=== PATIENT | female | born 1945 | race Caucasian/White ===

== ENCOUNTER 2019-10-15 11:50 | Inpatient (IN) | payer MEDICARE, OTHER ==
[~2019-10-15] VITALS: Ht 165.1 cm; Wt 116.9 kg
[2019-10-15] MEDS ORDERED: ACETAMINOPHEN 325 MG TAB PO ONE (12:30)
[2019-10-15 13:06] LABS: Basophils # (auto) 0.1 10 ^3/uL (0-0.2); Basophils % (auto) 0.4 % (0.0-2.0); Eosinophils # (auto) 0.1 10 ^3/uL (0-0.8); Eosinophils % (auto) 0.8 % (0.0-7.0); Hematocrit 59.1 % (36.0-46.0); Hemoglobin 18.6 g/dL (12.2-16.2); Lymphocytes # (auto) 0.3 10 ^3/uL (0.4-5.4); Lymphocytes % (auto) 1.9 % (10.0-50.0); Mean Corpuscular Hemoglobin 28.8 pg (28.0-32.0); Mean Corpuscular Hgb Conc. 31.5 g/dL (32.0-36.0); Mean Corpuscular Volume 91.4 fL (80.0-100.0); Monocytes # (auto) 0.9 10 ^3/uL (0-1.3); Monocytes % (auto) 4.9 % (0.0-12.0); Neutrophils # (auto) 16.3 10 ^3/uL (1.6-8.6); Nucleated Red Blood Cells % 0.2 %; Platelet Count (auto) 202 10^3/uL (140-450); Red Blood Cells 6.47 10^6/uL (4.0-5.20); Red Cell Distribution Width 16.7 % (11.8-14.3); White Blood Cell 17.7 10^3/uL (4.4-10.8)
[2019-10-15 13:29] LABS: Albumin 2.9 g/dL (3.4-5.0); Calcium 8.4 mg/dL (8.5-10.1); Potassium 4.1 mmol/L (3.5-5.1)
[2019-10-15 13:34] LABS: BUN/Creatinine Ratio 18.6; Bilirubin, Total 0.6 mg/dL (0.2-1.0); Total Protein 7.4 g/dL (6.4-8.2)
[2019-10-15] MEDS ORDERED: CLINDAMYCIN 600MG IV 50 ML IV ONE (14:15)
[2019-10-15] MEDS ORDERED: ONDANSETRON HCL 4 MG/2 ML VIAL IV PRN (15:30)
[2019-10-15] MEDS ORDERED: HYDROcodone-ACET 5/325MG TAB PO PRN (15:30)
[2019-10-15] MEDS ORDERED: NITROGLYCERIN 0.4 MG SL TAB SL PRN (15:30)
[2019-10-15] MEDS ORDERED: DEXTROSE (50%) 50ML SYRG IV PRN (15:30)
[2019-10-15] MEDS ORDERED: ACETAMINOPHEN 500 MG TAB PO PRN (15:30)
[2019-10-15] MEDS ORDERED: MORPHINE SULF INJ 2 MG/ML SYRINGE 1ML IV PRN ×2 (15:30)
[2019-10-15] MEDS ORDERED: ALBUTEROL SULF 2.5 MG/0.5ML(0.5%) NEB SOLN NEB PRN (15:45)
[2019-10-15] MEDS ORDERED: IPRATROPIUM BROM 0.5 MG/2.5ML INH SOL NEB PRN (15:45)
[2019-10-15] MEDS: InsuLIN REG 1unit/0.01ml Soln (100units/ml) SC SCH ×2 (17:17→21:54)
[2019-10-15] MEDS: ACCU-CHEK COMFORT CURVE STRIP VI SCH ×2 (17:17→21:54)
--- NOTE | 2019-10-15 17:43 | NUR ---
RECEIVED PATIENT TO THE FLOOR . NO REPORT RECEIVED.
--- NOTE | 2019-10-15 18:50 | NUR ---
RECEIVED PATIENT TO THE FLOOR A/O X4 NO SIGNS AND SYMPTOMS OF DISTRESS NOTED. INSTRUCTED PATIENT ON THE POC. WILL CONTINUE TO MONITOR. BED LOCKED IN LOWEST POSITION WITH TWO SIDE RAILS UP AND CALL LIGHT IN REACH.
[2019-10-15] MEDS: IPRATROPIUM BROM 0.5 MG/2.5ML INH SOL NEB SCH (18:55)
[2019-10-15] MEDS: ALBUTEROL SULF 2.5 MG/0.5ML(0.5%) NEB SOLN NEB SCH (18:55)
[2019-10-15 22:00] VITALS: BP 126/64
--- NOTE | 2019-10-16 00:31 | NUR ---
PATIENT MOVED TO ROOM 293 B. PATIENT REMAINED AAOX4. NO DISTRESS NOTED. FOR MORE CARE AND MANAGEMENT.
[2019-10-16 02:12] VITALS: BP 126/64
--- NOTE | 2019-10-16 04:50 | NUR ---
PATIENT IS SOB. NO DISTRESS NOTED. O2 ADMINISTERED. SATURATION WENT UP TO 93%. PATIENT HAS A DRY COUGH. PAGED RT, RE: BREATHING TREATMENT. PAGED MD AROUND 0500 TO RE EXAMINE PATIENT. AWAITING CALL BACK.
[2019-10-16 05:00] VITALS: BP 118/50
--- NOTE | 2019-10-16 05:27 | NUR ---
MADE CHARGE NURSE AWARE OF THE SITUATION. HE WILL NOTIFY HOUSE SHIFT SUP OF THE SITUATION. NOTED.
[2019-10-16] MEDS: ALBUTEROL SULF 2.5 MG/0.5ML(0.5%) NEB SOLN NEB SCH ×3 (06:00→18:00)
[2019-10-16] MEDS: IPRATROPIUM BROM 0.5 MG/2.5ML INH SOL NEB SCH ×3 (06:00→18:00)
--- NOTE | 2019-10-16 06:10 | NUR ---
Respiratory note: UNABLE TO GIVE SCHEDULED MEDNEB TX DUE TO PT BECOMING A COVID 19 R/O. RN STOPPED ME PRIOR TO ENTERING THE ROOM TO MAKE ME AWARE. RN IS CHANGING AEROSOLIZED MEDNEB TX, TO ALBUTEROL MDI TID. WILL CONTINUE TO MONITOR PT.
--- NOTE | 2019-10-16 06:15 | NUR ---
SPOKE WITH NAHUM CAVANAUGH AND MADE HIM AWARE OF PATIENT'S CONDITION. ORDERED TO TEST PATIENT FOR COVID19. MADE CHARGE NURSE AWARE OF THE SITUATION AND HE ADVISED ME TO SEND PATIENT TO A COVID AREA. MASK PROVIDED FOR THE PATIENT. MADE PATIENT AWARE OF THE SITUATION. REPORT GIVEN TO KYAW VELAZQUEZ. PATIENT IS WHEELED TO THE [facility]A, AAOX4 WITH O2 ON WAY. PATIENT HAS NO DISTRESS AT THE TIME OF TRANSFER.
[2019-10-16] MEDS: ACCU-CHEK COMFORT CURVE STRIP VI SCH ×4 (06:37→21:50)
[2019-10-16] MEDS: InsuLIN REG 1unit/0.01ml Soln (100units/ml) SC SCH ×4 (06:37→22:32)
--- NOTE | 2019-10-16 06:45 | NUR ---
Assumed care patient alert and oriented x 4, on oxygen at 4L via NC, o2 sat 92%, even and unlabored respirations, no s/s of distress.
--- NOTE | 2019-10-16 07:00 | NUR ---
Opening Shift Note Assumed care of patient, awake and alert. No S/S of distress/SOB or pain. Instructed on POC and to call for assist PRN, will continue to monitor for changes Q1hr and PRN.
--- NOTE | 2019-10-16 07:02 | NUR ---
Closing note patient resting in bed with oxygen on at 4L via NC, no s/s of distress, even and unlabored respirations. Bed in lowest locked position with side rails up x 2 and call light within reach.
[2019-10-16] MEDS: ALBUTEROL SULF HFA 90MCG INH 200DOSE IN SCH ×3 (08:00→22:00)
--- NOTE | 2019-10-16 08:00 | NUR ---
Respiratory note: PT GIVEN 2 PUFFS (180MCG) ALBUTEROL VIA MDI WITH CHAMBER. SPO2 92% ON 2L NC, HR 72, RR 18, BS EXPIRATORY WHEEZES/DIMINISHED BILATERALLY. NO ADVERSE EFFECTS NOTED. CHARTING COMPLETE FROM OUTSIDE OF ISO ROOM. WILL CONTINUE TO MONITOR PT.
[2019-10-16 09:00] VITALS: BP 85/57
[2019-10-16] MEDS: FAMOTIDINE 20 MG TAB PO SCH (09:22)
[2019-10-16] MEDS ORDERED: levoFLOXacin 500MG 100 ML IV ONE (12:00)
[2019-10-16] MEDS ORDERED: POTASSIUM CHL 20 Meq TABLET PO ONE (12:00)
[2019-10-16] MEDS ORDERED: FUROSEMIDE 20 MG/2 ML VIAL IV ONE (12:00)
--- NOTE | 2019-10-16 12:18 | NUR ---
Patient pulling at tele cords, Checked Patients O2 saturation patient saturation was at 83 %. titrated patient to 5 1/2 L NC patient only up to 88 %. checked BP 78/48 did recheck up to 116/72 at 1235 placed patient on 6L Oxymizer. patient saturation up to 91% Patient is A&Ox4 rechecked bp and it was 122/61 and O2 at 91%.
[2019-10-16 13:00] VITALS: BP 122/61
--- NOTE | 2019-10-16 14:47 | NUR ---
Respiratory note: PT GIVEN 2 PUFFS (180MCG) ALBUTEROL VIA MDI WITH CHAMBER. SPO2 91% ON 6L OXYMIZER, HR 78, RR 18, BS EXPIRATORY WHEEZES/DIMINISHED BILATERALLY. NO ADVERSE EFFECTS NOTED. CHARTING COMPLETE FROM OUTSIDE OF ISO ROOM. WILL CONTINUE TO MONITOR PT.
[2019-10-16] MEDS: CLINDAMYCIN 600MG IV 50 ML IV SCH ×2 (14:48→21:50)
--- NOTE | 2019-10-16 18:10 | NUR ---
PATIENT TRANSFER TO [facility] NO S/S OF DISTRESS OR SOB, NO PAIN NOTED. PATIENT CONNECTED TO 6 02 VIA OXYMIZER. FOOD TRAY PROVIDED. WILL CONTINUE TO MONITOR.
--- NOTE | 2019-10-16 18:53 | NUR ---
TELE BOX SENT TO ICU FOR CENTRAL TELE BOX
--- NOTE | 2019-10-16 18:54 | NUR ---
PATIENT ROUNDS PATIENT SITTING UP IN BED EATING DINNER. NO S/S OF DISTRESS OR SOB. RESPIRATIONS ARE EVEN AND UNLABORED. ENDORSED CARE TO RESIDENTIAL DOOR UNIT INSTALLER RN.
--- NOTE | 2019-10-16 21:00 | NUR ---
INSERTED IV ACCESS 22 LFA, REMOVED 20 LEFT WRIST, PT C/O TENDERNESS TO IV SITE, CATHETER TIP STILL INTACT AND PRESSURE DRESSING APPLIED.
[2019-10-16 22:18] VITALS: BP 130/63
--- NOTE | 2019-10-16 22:30 | NUR ---
UA SENT TO LAB
[2019-10-16 22:59] LABS: Urine Bacteria FEW /hpf (None Seen); Urine Blood Negative /uL (Negative); Urine Specific Gravity 1.014 (1.001-1.035); Urine WBC 1 /hpf (0 - 5)
[2019-10-17 04:59] VITALS: BP 119/70
[2019-10-17 05:56] LABS: Basophils # (auto) 0 10 ^3/uL (0-0.2); Basophils % (auto) 0.2 % (0.0-2.0); Eosinophils # (auto) 0.3 10 ^3/uL (0-0.8); Eosinophils % (auto) 3.8 % (0.0-7.0); Hematocrit 57.6 % (36.0-46.0); Hemoglobin 17.8 g/dL (12.2-16.2); Lymphocytes # (auto) 1.2 10 ^3/uL (0.4-5.4); Lymphocytes % (auto) 12.9 % (10.0-50.0); Mean Corpuscular Hemoglobin 28.7 pg (28.0-32.0); Mean Corpuscular Hgb Conc. 30.9 g/dL (32.0-36.0); Mean Corpuscular Volume 92.8 fL (80.0-100.0); Monocytes % (auto) 10.7 % (0.0-12.0); Neutrophils # (auto) 6.5 10 ^3/uL (1.6-8.6); Neutrophils % (auto) 72.4 % (37.0-80.0); Nucleated Red Blood Cells % 0.1 %; Platelet Count (auto) 192 10^3/uL (140-450); Red Blood Cells 6.21 10^6/uL (4.0-5.20); Red Cell Distribution Width 16.7 % (11.8-14.3)
[2019-10-17] MEDS: CLINDAMYCIN 600MG IV 50 ML IV SCH ×3 (05:57→21:08)
[2019-10-17] MEDS: ACCU-CHEK COMFORT CURVE STRIP VI SCH ×4 (05:57→21:09)
[2019-10-17] MEDS: InsuLIN REG 1unit/0.01ml Soln (100units/ml) SC SCH ×4 (05:57→21:17)
[2019-10-17] MEDS: ALBUTEROL SULF 2.5 MG/0.5ML(0.5%) NEB SOLN NEB SCH ×3 (06:00→19:33)
[2019-10-17] MEDS: IPRATROPIUM BROM 0.5 MG/2.5ML INH SOL NEB SCH ×3 (06:00→19:33)
[2019-10-17 06:13] LABS: BUN/Creatinine Ratio 26.6; Calcium 8.4 mg/dL (8.5-10.1); Potassium 4.5 mmol/L (3.5-5.1)
[2019-10-17] MEDS: ALBUTEROL SULF HFA 90MCG INH 200DOSE IN SCH (06:29)
[2019-10-17 08:39] VITALS: BP 109/72
[2019-10-17] MEDS: FAMOTIDINE 20 MG TAB PO SCH (10:30)
[2019-10-17] MEDS: levoFLOXacin 500MG 100 ML IV SCH (10:30)
[2019-10-17 12:55] VITALS: BP 141/79
[2019-10-17 17:00] VITALS: BP 127/63
--- NOTE | 2019-10-17 18:59 | NUR ---
RT NOTE PT EATING EVENING MEAL, RT TO RETURN FOR HHN TX.
--- NOTE | 2019-10-17 19:41 | NUR ---
RT NOTE PT WAS SEEN BY RT FOR HHN TX. PT TOLERATES WELL VIA MOUTHPIECE. NO ADVERSE REACTION NOTED. CONT ORDERED Addendum: 10/17/19 at 1941 by Shavon Lynch RT Amended: Links added.
[2019-10-17 22:00] VITALS: BP 111/61
[2019-10-18 04:30] VITALS: BP 108/66
[2019-10-18] MEDS: CLINDAMYCIN 600MG IV 50 ML IV SCH ×2 (05:30→14:17)
[2019-10-18] MEDS: ACCU-CHEK COMFORT CURVE STRIP VI SCH ×3 (06:12→17:27)
[2019-10-18] MEDS: InsuLIN REG 1unit/0.01ml Soln (100units/ml) SC SCH ×3 (06:12→17:00)
[2019-10-18] MEDS: IPRATROPIUM BROM 0.5 MG/2.5ML INH SOL NEB SCH ×3 (06:41→18:29)
[2019-10-18] MEDS: ALBUTEROL SULF 2.5 MG/0.5ML(0.5%) NEB SOLN NEB SCH ×3 (06:41→18:29)
[2019-10-18] MEDS: FAMOTIDINE 20 MG TAB PO SCH (08:59)
[2019-10-18] MEDS: levoFLOXacin 500MG 100 ML IV SCH (08:59)
[2019-10-18 09:00] VITALS: BP 124/68
[2019-10-18] MEDS ORDERED: POTASSIUM CHL 20 Meq TABLET PO ONE (13:00)
[2019-10-18] MEDS ORDERED: FUROSEMIDE 40 MG/4 ML VIAL IV ONE (13:00)
--- NOTE | 2019-10-18 13:54 | NUR ---
pO2 46.3, Dr. Bill carroll. Awaiting to call back.
[2019-10-18 14:00] VITALS: BP 136/76
--- NOTE | 2019-10-18 14:17 | NUR ---
Dr. Khan made aware of Po2, will put order in.
[2019-10-18 14:21] VITALS: BP 136/76
--- NOTE | 2019-10-18 16:15 | NUR ---
Left a message to Ronald TERRAZAS regarding SS consult for home o2. Awaiting to call back.
--- NOTE | 2019-10-18 16:39 | NUR ---
assessment Patient is a 74 year old female who is alert and oriented. Patients cognitive abilities are intact. Prior to admission patient lived home with family and functioned independently. Patient informed me she is able to care for her own ADLs. Per patient she will return home to her prior living arrangements post discharge and family will transport her home. Patient informed me she uses [facility]. Patient will need home oxygen and [facility] SW2 will satisfied order. I informed patient she has a right to speak to a outreach and education social worker regarding all care. I informed patient she has a right to participate in any and all discharge planning. Patient does not have a POA and advanced directive. I have offered patient information on POA and advanced directives. I informed the patient the advantages and benefits of having an Advanced Directive. Patient verbalized understanding and agreed to discharge plan. Addendum: 10/18/19 at 1643 by Orin TERRAZAS Amended: Links added.
--- NOTE | 2019-10-18 16:46 | NUR ---
SS paged regarding home o2. Awaiting to call back.
--- NOTE | 2019-10-18 16:48 | NUR ---
Per Connor TERRAZAS stated still working on it.
[2019-10-18 17:00] VITALS: BP 136/88
--- NOTE | 2019-10-18 17:11 | NUR ---
SS consult regarding home oxygen setup. Contacted [facility] and spoke with [employer]. Provided clinical information via phone and fax. Pt's accepted onto service and portable oxygen to be delivered to the hospital. Instructed to contact the floor to have someone to meet stage driver in lobby to grain picker portable tank. Upon arriving home pt will need to contact [facility] at for home concentrator to be delivered to the home. Portable tank eta 1-2 hours. Will continue to provide intervention for any additional arising concerns or needs.
--- NOTE | 2019-10-18 18:25 | NUR ---
RT NOTE PT WAS SEEN BY RT FOR HHN TX. PT TOLERATES WELL VIA MOUTHPIECE. NO ADVERSE REACTION NOTED. CONT ORDERED Addendum: 10/18/19 at 1841 by Shavon Lynch RT Amended: Links added.
--- NOTE | 2019-10-18 19:15 | NUR ---
Discharge instructions given as ordered. Encourage to follow up with PMD (Patient has NO PCP, Perlita Sigala Rn coordinator card given to patient. )as instructed. All questions and concerns addressed. Patient verbalized understanding. Medication reconciliation form completed and copy given to patient. IV removed with catheter intact, pressure dressing applied. Telemetry unit returned to ICU. Patient taken to vehicle via wheelchair with all personal belongings, accompanied by staff and family member. No distress noted at time of departure. Oxygen tank received.
== END 2019-10-18 19:10 | disposition home or self-care (01) | DRG 871 ==
LOC: ER 11:50 → OVERFLOW 11:51 → WEST WING 17:55 → TELE-E-ADS 10-16 06:44 → TELE-CENTR 10-16 18:22
PROVIDERS: ADMIT Nurse Practitioner Acute Care; ATTEND Internal Medicine
DX: A41.9 Sepsis, unspecified organism (principal); J96.00 Acute respiratory failure, unspecified whether with hypoxia or hypercapnia; I50.31 Acute diastolic (congestive) heart failure; L03.115 Cellulitis of right lower limb; L03.116 Cellulitis of left lower limb; E11.65 Type 2 diabetes mellitus with hyperglycemia; E66.01 Morbid (severe) obesity due to excess calories; G47.30 Sleep apnea, unspecified; E88.09 Other disorders of plasma-protein metabolism, not elsewhere classified; Z88.8 Allergy status to other drugs, medicaments and biological substances; Z90.5 Acquired absence of kidney; Z82.49 Family history of ischemic heart disease and other diseases of the circulatory system; Z87.891 Personal history of nicotine dependence; Z79.84 Long term (current) use of oral hypoglycemic drugs; Z03.818 Encounter for observation for suspected exposure to other biological agents ruled out; Z68.31 Body mass index [BMI] 31.0-31.9, adult
CPT/HCPCS: 36415; 36600; 71045; 80048; 80053; 81001; 82805; 82962; 83036; 83605; 83880; 84484; 85025; 87040; 93005; 93306; 93970; 94640; 96365; G0378; J1815; J1956; J3490